=== PATIENT | male | born 1935 | race Hispanic/Latino ===

== ENCOUNTER 2018-10-11 05:33 | Outpatient (CLI) | payer MEDICARE, BC | END 2018-10-11 05:34 | disposition home or self-care (01) | LOC: PET-BROA 05:33 ==

== ENCOUNTER 2019-01-03 07:17 | Inpatient (IN) | payer MEDICARE, BC ==
--- NOTE | 2019-01-03 07:52 | ED PDOC ---
Arrival/HPI - General Chief Complaint: Trauma Time Seen by Provider: 01/03/19 07:32 Historian: Patient - History of Present Illness Narrative History of Present Illness (Text): 01/03/19 07:32 Omkar Kimble is an 83 year old male, with a past medical history of blindness (right eye), seizures, and hallucinations, bib EMS complaining of AMS and falls earlier this morning. Per , patient was given old sleeping pill which causes pt to have hallucinations; she informs patient fell in the bathroom and denies loss of consciousness. Patient also states slipping and falling out of bed but denies head injury or loss of consciousness. Patient states he landed on his right hand but denies any bodily injuries. Per , patients current mental status in ED is normal s/p sleeping pills. Per daughter, patient is currently being evaluated for hallucinations and seizures. Daughter states patient appreciates extremity weakness at home and requests patient admission and rehab. Patient denies headache, dizziness, fevers, chills, nausea, vomiting, diarrhea, visual changes, neck pain, back pain, dysuria, hematuria, frequency changes, bowel/bladder incontinence, or any other complaints. Time/Duration: Prior to Arrival Symptom Onset: Sudden Activities at Onset: Light Context: Home Past Medical History - Provider Review Nursing Documentation Reviewed: Yes - Infectious Disease Hx of Infectious Diseases: None - Neurological Hx Dementia: Yes - Psychiatric Hx Substance Use: No - Anesthesia Hx Anesthesia Reactions: No Family/Social History - Physician Review Nursing Documentation Reviewed: Yes Family/Social History: Unknown Family HX Smoking Status: Former Smoker Hx Alcohol Use: No Hx Substance Use: No Allergies/Home Meds Allergies/Adverse Reactions: Allergies No Known Allergies Allergy (Verified 01/03/19 13:18) Home Medications: Home Meds Medication Instructions Recorded Confirmed Isosorbide Mononitrate ER [Imdur 30 mg PO DAILY 01/03/19 01/03/19 ER] Nortriptyline [Nortriptyline HCl] 10 mg PO DAILY 01/03/19 01/03/19 Tamsulosin [Flomax] 0.4 mg PO DAILY 01/03/19 01/03/19 Triamterene [Dyrenium] 50 mg PO DAILY 01/03/19 01/03/19 lamoTRIgine [Lamictal] 25 mg PO BID 01/03/19 01/03/19 Review of Systems - Review of Systems Constitutional: absent: Fevers, Other (chills) Eyes: absent: Vision Changes Gastrointestinal: absent: Diarrhea, Nausea, Vomiting, Other (bowel incontinence) Genitourinary Male: absent: Dysuria, Frequency, Hematuria, Other (urinary incontinence) Musculoskeletal: absent: Arthralgias, Back Pain, Neck Pain, Other (head injury) Neurological: absent: Headache, Dizziness, Other (loss of consciousness) Physical Exam Vital Signs Reviewed: Yes Vital Signs Temp Pulse Resp BP Pulse Ox 01/03/19 07:27 98.8 F 97 H 18 127/63 94 L Temperature: Afebrile Blood Pressure: Normal Pulse: Regular Respiratory Rate: Normal Appearance: Positive for: Well-Appearing, Non-Toxic, Comfortable Pain Distress: None Mental Status: Positive for: Alert and Oriented X 3 Finger Stick Blood Glucose: 153 - Systems Exam Head: Present: Atraumatic, Normocephalic Pupils: Present: PERRL Extroacular Muscles: Present: EOMI Conjunctiva: Present: Normal Mouth: Present: Moist Mucous Membranes Neck: Present: Normal Range of Motion Respiratory/Chest: Present: Clear to Auscultation, Good Air Exchange. No: Respiratory Distress, Accessory Muscle Use, Wheezes, Rales, Rhonchi Cardiovascular: Present: Regular Rate and Rhythm, Normal S1, S2. No: Murmurs, Rub, Gallop Abdomen: Present: Normal Bowel Sounds. No: Tenderness, Distention, Peritoneal Signs, Rebound, Guarding Back: Present: Normal Inspection Upper Extremity: Present: Normal Inspection, Normal ROM, NORMAL PULSES, Neurovascularly Intact, Other (good strength of upper extremities). No: Cyanosis, Edema Lower Extremity: Present: Normal Inspection, NORMAL PULSES, Normal ROM, Neurovascularly Intact, Other (good strength of lower extremities). No: Edema Neurological: Present: GCS=15, CN II-XII Intact, Speech Normal, Motor Func Grossly Intact Skin: Present: Warm, Dry, Normal Color. No: Rashes Psychiatric: Present: Alert, Oriented x 3, Normal Insight, Normal Concentration Medical Decision Making ED Course and Treatment: 01/03/19 07:32 Impression: Patient is an 83 year old male, with a past medical history of blindness (right eye), seizures, and hallucinations, bib EMS to the emergency department complaining of AMS and falls earlier this morning. Plan: -- CT Head w/o Contrast -- Labs -- Reassess and disposition Prior Visits: Notes and results from previous visits were reviewed. Progress Notes: Labs and imaging done. UTI noted. Rocephin 1g ivpb ordered. Will admit for frequent falls and UTI. Case discussed with Dr. Gutierres, who came to see the patient in the emergency department and accepts him for admission to his service. - RAD Interpretation Narrative RAD Interpretations (Text): 01/03/19 09:12 CT Head w/o Contrast shows: IMPRESSION: No acute findings Dog Or Animal Sitter: Radiologist - EKG Interpretation EKG Interpretation (Text): 01/03/19 07:23 Reviewed EKG, shows: NSR at 100 BPM. Normal Hammond. Normal Intervals. No ST elevations. Interpreted by ED Physician: Yes Type: 12 lead EKG - Scribe Statement The provider has reviewed the documentation as recorded by the Scribe Arnel Wild All medical record entries made by the Scribe were at my direction and personally dictated by me. I have reviewed the chart and agree that the record accurately reflects my personal performance of the history, physical exam, medical decision making, and the department course for this patient. I have also personally directed, reviewed, and agree with the discharge instructions and disposition. Disposition/Present on Arrival - Present on Arrival Any Indicators Present on Arrival: No History of DVT/PE: No History of Uncontrolled Diabetes: No Urinary Catheter: No History of Decub. Ulcer: No History Surgical Site Infection Following: None - Disposition Have Diagnosis and Disposition been Completed?: Yes Diagnosis: UTI (urinary tract infection), Frequent falls Disposition: HOSPITALIZED Disposition Time: 09:50 Condition: STABLE
[2019-01-03 07:55] LABS: BASO # 0.02 K/mm3 (0.0-2.0); BASO % 0.1 % (0.0-3.0); EOS # 0.1 (0.0-0.7); EOS % 0.3 % (1.5-5.0); HEMOGLOBIN 10.8 g/dL (14.0-18.0); LYMPH # 1.2 (1.2-3.4); LYMPH % 6.5 % (22.0-35.0); MEAN CELL VOLUME 92.7 fl (80.0-105.0); MEAN CORPUSCULAR HGB CONC 31.3 g/dl (31.0-37.0); MEAN PLATELET VOLUME 9.4 fl (7.0-11.0); MONO % 5.6 % (1.0-6.0); RBC 3.72 10^6/uL (3.5-6.1); RED CELL DISTRIBUTION WIDTH 13.9 % (11.5-14.5); WHITE BLOOD COUNT 18.5 10^3/uL (4.5-11.0)
[2019-01-03 08:06] LABS: ALB/GLOB RATIO 1.3 (1.1-1.8); ALBUMIN 3.9 g/dL (3.0-4.8); CALCIUM 10.5 mg/dL (8.4-10.5)
--- NOTE | 2019-01-03 09:16 | CT ---
Date of service: 01/03/2019 PROCEDURE: CT HEAD WITHOUT CONTRAST. HISTORY: fall COMPARISON: None available. TECHNIQUE: Axial computed tomography images were obtained through the head/brain without intravenous contrast. Radiation dose: Total exam DLP = 913.86 mGy-cm. This CT exam was performed using one or more of the following dose reduction techniques: Automated exposure control, adjustment of the mA and/or kV according to patient size, and/or use of iterative reconstruction technique. FINDINGS: HEMORRHAGE: No intracranial hemorrhage. BRAIN: No mass effect or edema. Mild age-related atrophy. VENTRICLES: Unremarkable. No hydrocephalus. CALVARIUM: Unremarkable. PARANASAL SINUSES: Unremarkable as visualized. No significant inflammatory changes. MASTOID AIR CELLS: Unremarkable as visualized. No inflammatory changes. OTHER FINDINGS: None. IMPRESSION: No acute findings
[2019-01-03 09:24] LABS: URINE BILIRUBIN NEGATIVE (NEGATIVE); URINE BLOOD TRACE-LYSED (NEGATIVE); URINE GLUCOSE (UA) NEGATIVE (NEGATIVE); URINE LEUKOCYTE ESTERASE SMALL Leu/uL (NEGATIVE); URINE PROTEIN NEGATIVE mg/dL (<30 mg/dL); URINE UROBILINOGEN 0.2 E.U./dL (<1 E.U./dL)
[2019-01-03 09:27] LABS: URINE APPEARANCE SL CLOUDY (CLEAR); URINE COLOR YELLOW (YELLOW)
[2019-01-03 09:34] LABS: URINE BACTERIA FEW /hpf; URINE RBC 0 - 2 /hpf (0-2)
[2019-01-03] MEDS ORDERED: cefTRIAXone 1 gm 1 GM/100 ML BAG IVPB ONE (09:52)
[2019-01-03] MEDS: Dextrose 5%/0.45% NS 1,000 ML IV SCH (13:03)
--- NOTE | 2019-01-03 16:18 | CON ---
DATE: 01/03/2019 HISTORY OF PRESENT ILLNESS: He is an 83-year-old male who is blind from the right eye, complains of seizure and hallucinations. The patient felt altered and confused and fell in the bathroom, did not lose consciousness. Called to evaluate the patient. Denies any headaches. No dizziness. The patient's family is at bedside and eating. REVIEW OF SYSTEMS: Ten-point review of systems is negative except confusion. PHYSICAL EXAMINATION VITAL SIGNS: Blood pressure 127/63. HEENT: Normocephalic and atraumatic. NECK: Supple. NEUROLOGIC: Awake and oriented to self and place. Cranial nerves II through XII were tested. Pupils reactive. EOM intact. Visual crane full. No facial asymmetry. Tongue midline. Motor examination, moves all the extremities spontaneously and equally. Deep tendon reflexes 1+. Both plantars are downgoing. Sensory appears intact. Cerebellar gait was deferred. IMPRESSION: Altered mental status, history of seizure, and generalized weakness. We will follow up. Workup in progress. Jhony Jernigan MD
[2019-01-03 16:20] VITALS: BMI 27.7
[2019-01-03] MEDS ORDERED: Pneumococcal 23-Valent Vaccine IM ONE (16:20)
--- NOTE | 2019-01-03 19:00 | CARD ---
APPROVED REPORT Date of service: 01/03/2019 EKG Measurement Heart [id number] <Conclusion> Normal sinus rhythm Normal ECG
[2019-01-04 09:27] LABS: BASO # 0.03 K/mm3 (0.0-2.0); BASO % 0.3 % (0.0-3.0); EOS # 0.5 (0.0-0.7); EOS % 4.9 % (1.5-5.0); HEMOGLOBIN 11.5 g/dL (14.0-18.0); LYMPH # 0.9 (1.2-3.4); MEAN CELL VOLUME 92.5 fl (80.0-105.0); MEAN CORPUSCULAR HEMOGLOBIN 28.8 pg (25.0-35.0); MEAN CORPUSCULAR HGB CONC 31.1 g/dl (31.0-37.0); MEAN PLATELET VOLUME 9.2 fl (7.0-11.0); MONO # 0.9 (0.1-0.6); MONO % 8.4 % (1.0-6.0); WHITE BLOOD COUNT 10.8 10^3/uL (4.5-11.0)
[2019-01-04 09:38] LABS: CALCIUM 10.8 mg/dL (8.4-10.5)
[2019-01-04] MEDS: cefTRIAXone 1 gm 1 GM/100 ML BAG IV SCH (09:40)
[2019-01-04] MEDS: Tobramycin/Dexamethasone (Tobradex) Opth Sol (2.5 ml) OD SCH ×2 (09:41→17:31)
--- NOTE | 2019-01-04 11:11 | CP.PCM.PCO ---
Additional Comments - Additional Comments Additional Comments: Pt is an 83 y.o. male w/ pmhx of seizures, hallucinations and blind on R eye was brought in to ED for AMS and s/p fall. In ED, his WBC was elevated at 18.5 and his bun/cr were 40/1.9 respectively. Pt's urinalysis was positive. Currently, pt is on Rocephin IV and IVFs. Pt is afebrile and his leukocytosis improved. Pt was seen and examined at bedside. He is in no acute distress, denies chest pain or shortness of breath. Pt is confused and states that he is going to a wedding today and he will be the ring bearer. ITS Impressions Head CT 01/03/19 07:44 IMPRESSION: No acute findings Laboratory Results - last 24 hr 01/04/19 01/04/19 09:00 09:00 WBC 10.8 D RBC 4.00 Hgb 11.5 L Hct 37.0 L MCV 92.5 MCH 28.8 MCHC 31.1 RDW 14.0 Plt Count 210 MPV 9.2 Neut % (Auto) 78.4 H Lymph % (Auto) 8.0 L Bracken % (Auto) 8.4 H Eos % (Auto) 4.9 Baso % (Auto) 0.3 Lymph # (Auto) 0.9 L Bracken # (Auto) 0.9 H Eos # (Auto) 0.5 Baso # (Auto) 0.03 Absolute Neuts (auto) 8.47 H Sodium 142 Potassium 4.0 Chloride 106 Carbon Dioxide 27 Anion Gap 13 BUN 28 H Creatinine 1.6 H Est GFR ( Amer) 50 Est GFR (Non-Af Amer) 41 Random Glucose 150 H Calcium 10.8 H A/P: UTI - on Rocephin IV, pending urine cx S/P fall - CT head negative, Neuro on consult, pending physical therapy eval JOHN - on IVFs. Bun/Cr improving, continue to monitor Will continue to follow.
--- NOTE | 2019-01-04 11:37 | CP.PCM.PCO ---
Physician Communication Note - Physician Communication Note Physician Communication Note: PT eval. avoid sedative meds. c./w with home sz meds. thx
--- NOTE | 2019-01-04 12:18 | RAD ---
Date of service: 01/04/2019 HISTORY: hi wbc, ams COMPARISON: No prior. TECHNIQUE: Chest PA and lateral views FINDINGS: LUNGS: No active pulmonary disease. PLEURA: No significant pleural effusion identified. No pneumothorax apparent. CARDIOVASCULAR: Aortic calcification and mild tortuosity Normal cardiac size. No pulmonary vascular congestion. OSSEOUS STRUCTURES: No significant abnormalities. VISUALIZED UPPER ABDOMEN: Normal. OTHER FINDINGS: None. IMPRESSION: No active disease.
--- NOTE | 2019-01-05 02:26 | PN ---
DATE: 01/04/2019 SUBJECTIVE: The patient was seen this Monday morning in room 567, bed 2 as he is being washed. He is lying in bed comfortable but very much confused. He is talk is constant, and he is laughing and joking during the entire process. He recognizes me and carries on conversation but in a very lighthearted and impertinent manner. Earlier today, he pulled out his IV and was trying to climb out of bed. PHYSICAL EXAMINATION: LUNGS: Good aeration right and left. HEART: Regular, nontachycardic. EXTREMITIES: Show no edema. REVIEW OF LABS: Review of labs shows white count to come down to normal. Chemistries are otherwise acceptable. His BUN has come down a bit. He does, however, remain clinically dry. IMPRESSION: 1. Urinary tract infection. 2. Dehydration. 3. Acute altered mental status related to urinary traction infection and dehydration. 4. Several months of worsening delusions and visual hallucinations with outpatient neurology workup, suspect Lewy body dementia. PLAN: We will continue antibiotics for urinary tract infection. Extend aggressive IV hydration. Neurology input appreciated. We will continue and await results of workup as outlined above. I spoke to the patient's yesterday in the ER and again this evening by telephone to update her on his condition. Jeramie Gutierres MD [email or web address]
[2019-01-05 07:33] LABS: BASO # 0.03 K/mm3 (0.0-2.0); BASO % 0.4 % (0.0-3.0); EOS # 0.8 (0.0-0.7); EOS % 9.9 % (1.5-5.0); HEMOGLOBIN 12.2 g/dL (14.0-18.0); LYMPH # 1.1 (1.2-3.4); LYMPH % 14.5 % (22.0-35.0); MEAN CELL VOLUME 94.3 fl (80.0-105.0); MEAN CORPUSCULAR HGB CONC 30.8 g/dl (31.0-37.0); MEAN PLATELET VOLUME 9.2 fl (7.0-11.0); MONO % 13.1 % (1.0-6.0); RBC 4.2 10^6/uL (3.5-6.1); WHITE BLOOD COUNT 7.6 10^3/uL (4.5-11.0)
[2019-01-05 07:50] LABS: CALCIUM 11.1 mg/dL (8.4-10.5)
[2019-01-05] MEDS: Dextrose 5%/0.45% NS 1,000 ML IV SCH ×2 (08:14→10:21)
[2019-01-05] MEDS: cefTRIAXone 1 gm 1 GM/100 ML BAG IV SCH (09:51)
[2019-01-05] MEDS: Tobramycin/Dexamethasone (Tobradex) Opth Sol (2.5 ml) OD SCH ×3 (11:48→18:54)
--- NOTE | 2019-01-05 23:43 | PN ---
DATE: 01/05/2019 SUBJECTIVE: The patient was seen this Monday morning in room 567 bed 1 with his at the bedside. The patient sound sleep after having been up and in a high energy state most of yesterday and through the night. He received some sedation in premium representative hours and is now quite sleepy. I have the feeling he will sleep most of today after such an active day yesterday. His white count is coming down nicely. His blood pressure is stable. BUN is coming down as well. Creatinine has finally entered the normal range. Prior records and Neurology consultation was reviewed in his office note. There is a suspicion of Lewy bodies, dementia with visual hallucinations, as well as concern of Parkinson's disease especially as his today reports a decreased movement, shuffling gait and some times frozen inability to move his legs. Therefore, we will avoid neuroleptics, discontinue the Risperdal, add levodopa/carbidopa and try to minimize benzodiazepines as much as possible. We will continue antibiotics and reevaluate in the morning. Urine cultures have shown Gram-negative rods, but we will await isolation and sensitivity. Jeramie Gutierres MD DELANEY
[2019-01-06] MEDS: Dextrose 5%/0.45% NS 1,000 ML IV SCH ×2 (03:34→23:19)
[2019-01-06] MEDS ORDERED: DiphenhydrAMINE 50 mg/ml Inj IVP STA (03:42)
[2019-01-06 07:47] LABS: BASO # 0.03 K/mm3 (0.0-2.0); BASO % 0.4 % (0.0-3.0); EOS # 0.6 (0.0-0.7); EOS % 8.8 % (1.5-5.0); HEMOGLOBIN 11.2 g/dL (14.0-18.0); LYMPH # 0.6 (1.2-3.4); LYMPH % 9.2 % (22.0-35.0); MEAN CELL VOLUME 92.9 fl (80.0-105.0); MEAN CORPUSCULAR HEMOGLOBIN 29.4 pg (25.0-35.0); MEAN CORPUSCULAR HGB CONC 31.6 g/dl (31.0-37.0); MEAN PLATELET VOLUME 9.6 fl (7.0-11.0); MONO % 14.2 % (1.0-6.0); RBC 3.81 10^6/uL (3.5-6.1); RED CELL DISTRIBUTION WIDTH 13.8 % (11.5-14.5)
[2019-01-06 08:34] LABS: ALB/GLOB RATIO 1.2 (1.1-1.8); ALBUMIN 3.7 g/dL (3.0-4.8); CALCIUM 10.8 mg/dL (8.4-10.5)
[2019-01-06] MEDS: cefTRIAXone 1 gm 1 GM/100 ML BAG IV SCH (10:47)
[2019-01-06] MEDS: Tobramycin/Dexamethasone (Tobradex) Opth Sol (2.5 ml) OD SCH ×2 (10:47→18:24)
--- NOTE | 2019-01-06 21:57 | PN ---
DATE: 01/06/2019 SUBJECTIVE: The patient was seen this Monday morning in room 567, bed 1 with no visitors present at this time. Electronic monitor is present in the room as the patient was tending to get up and out of bed. He slept a good part of yesterday, but then was up for a bit of the night and rather restless. PHYSICAL EXAMINATION: NEUROLOGY: He is a bit confused. Notes from outpatient Neurology workup were reviewed and some of his medicines were adjusted regarding the concern about seizure. He is on Lamictal as well as quetiapine for the hallucinations at bedtime and again in the morning, so I will resume those. I also added some levodopa and carbidopa as the reports stiffness and rigidity. We will try to get physical therapy evaluation and perhaps TCU evaluation in the morning and we will discuss further with Neurology. Jeramie Gutierres MD
--- NOTE | 2019-01-07 02:28 | HP ---
DATE OF EXAM: 01/03/2019 CHIEF COMPLAINT: Altered mental status. HISTORY OF PRESENT ILLNESS: This is an 83-year-old man in recent workup for visual hallucinations, who lives at home independently with his and children close nearby who was brought to the emergency room by his family on the morning of admission with reported bizarre behavior, altered mental status, conversation that is not making sense. In the emergency room, patient was found to have urinary tract infection, be acutely confused and arrangements were made for him to be admitted. I saw him in the emergency room, IV fluids and antibiotics were started. PAST MEDICAL HISTORY: Significant for hypertension since 04/2015. Negative for diabetes, cholesterol, tuberculosis, asthma, seizure, gout, emphysema, TIA, CVA, IA, coronary artery disease, or cancers of any type. Problem list in the office includes hypertension, peripheral artery disease, psoriasis, elevated PSA with BPH, blind in the right eye, primary hypoparathyroidism diagnosed in 2017. PAST SURGICAL HISTORY: Significant for a table saw accident in 2004 with a slight amputation of tip of the right index finger, cataract surgery on the right eye in 2010 resulting in blindness postop complications, a retinal bleed in the right eye at age 34, vocal cord polyps removed in the , right eye blindness, he can see light, but not movement since 09/2013, and kidney stones in 1983. He never had a colonoscopy because his [id number] had complications and a perforation at the time of the colonoscopy. He had a stress test in 2001. He gets the flu shot yearly. His last Pneumovax vaccine was in 2000. ALLERGIES: LISINOPRIL CAUSED HIVES, POTASSIUM AND ATENOLOL CAUSED PROFOUND BRADYCARDIA IN THE PAST. SOCIAL HISTORY: Tobacco; he quit smoking in 1997 after many years of a pack per day or more. Up until recently he would drink an occasional alcoholic beverage, a beer and 3 or 4 cups of coffee per day. FAMILY HISTORY: His mother at age 48. Father at age 72. He is the oldest of five. The patient, his brother, and two sisters survive. He is with eight children, five sons, and three daughters, 12 grand and one great grand. 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 His manufacturing mechanic was Dr. Savage until he had recently retired and Dr. Salomon. MEDICATIONS: Most recent medications in the office included quetiapine 25 mg b.i.d., atorvastatin 20 mg once a day, isosorbide 30 mg once a day, triamterene and hydrochlorothiazide 37.5/25 mg once a day, vitamin D3, MiraLax, tamsulosin 0.4 mg daily, aspirin 81 mg daily, vitamins, and arthritis supplementals. He was recently been seen by Dr. Zuluaga, neurologist, and worked up for visual hallucinations. He was concern or question about a possible seizure disorder on recent EEGs that were done. REVIEW OF SYSTEMS: Difficult to obtain because of patient's obtunded and confused state. PHYSICAL EXAMINATION GENERAL: Patient was seen this morning in the emergency room with his and daughter at the bedside. He was in bed, awake, but confused, not making sense, a bit lethargic and groggy. HEENT: Conjunctivae are pink. Mucous membranes are moist. NECK: Supple with no masses. LUNGS: Show good aeration right and left. HEART: Regular and not tachycardic. ABDOMEN: Overweight, nontender. EXTREMITIES: Show no edema. IMPRESSION: 1. Acute altered mental status most likely due to urinary traction infection. 2. Urinary traction infection. 3. Recent history of visual hallucinations with possibility of seizure disorder and/or Lewy body dementia. 4. Hypertension. 5. Peripheral artery disease. 6. Psoriasis. 7. Benign prostatic hypertrophy with elevated prostate specific antigen. 8. Blind in right eye. 9. Primary hyperparathyroidism. PLAN: Patient will be admitted, given IV fluids and antibiotics. Neurology consultation requested and then after speaking with the patient's family, we will look for physical therapy and perhaps Transitional Care Unit for therapy and conditioning prior to returning home. Jeramie Gutierres MD
[2019-01-07] MEDS: Cefpodoxime (Vantin) 200 mg Tab PO SCH ×2 (10:57→21:05)
[2019-01-07] MEDS: Tobramycin/Dexamethasone (Tobradex) Opth Sol (2.5 ml) OD SCH ×2 (10:58→17:44)
[2019-01-07 12:32] LABS: CALCIUM 10.4 mg/dL (8.4-10.5)
--- NOTE | 2019-01-07 13:14 | PN ---
DATE: 01/07/2019 SUBJECTIVE: The patient is an 83-year-old male, who was admitted to the [facility] on 01/03/2019 after falling at home showing mental status changes including bizarre behavior, hallucinations, on nonsensical conversation. The patient was evaluated in the emergency room and admitted. He was found to have urinary tract infection. This morning, the cultures were identified as Enterobacter cloacae, which is sensitive to Rocephin, which the patient had been receiving. He also was evaluated by Physical Therapy, was able to ambulate with a rolling walker 20 feet x2 and subacute care was recommended. When seen today, the patient was resting comfortably. His and daughter were at bedside. Case was discussed at length with them. They will be meeting with social workers and mental health case manager later on today for further plan of care. The patient is known to have a past medical history for hypertension, peripheral artery disease, psoriasis, benign prostatic hypertrophy, blindness in the right eye, hypoparathyroidism. ASSESSMENT AND PLAN: We will continue to follow the patient closely. Antoni Gutierres MD
--- NOTE | 2019-01-08 02:15 | CP.PCM.PN ---
Subjective - Date & Time of Evaluation Date of Evaluation: 01/08/19 Time of Evaluation: 02:15 - Subjective Subjective: See my note elsewhere. Objective - Vital Signs/Intake and Output Vital Signs (last 24 hours): Temp Pulse Resp BP Pulse Ox 98.2 F 87 18 188/70 H 95 01/07/19 23:08 01/08/19 01:40 01/07/19 23:08 01/08/19 01:40 01/07/19 23:08 Intake and Output: 01/07/19 01/08/19 18:59 06:59 Intake Total 540 Balance 540 - Medications Medications: Current Medications Carbidopa/Levodopa (Sinemet 10/100) 1 tab PO TID [facility] Last Admin: 01/07/19 17:44 Dose: 1 tab Cefpodoxime Proxetil (Vantin) 200 mg PO Q12 [facility] Last Admin: 01/07/19 21:05 Dose: 200 mg Dextrose/Sodium Chloride (Dextrose 5%/0.45% Ns 1000 Ml) 1,000 mls @ 60 mls/hr IV .[id number] [facility] Last Admin: 01/06/19 23:19 Dose: 60 mls/hr Isosorbide Mononitrate (Imdur Er) 30 mg PO DAILY [facility] Last Admin: 01/07/19 10:57 Dose: 30 mg Lamotrigine (Lamictal) 25 mg PO BID [facility]; Protocol Last Admin: 01/07/19 17:44 Dose: 25 mg Lorazepam (Ativan) 0.5 mg PO Q6H PRN; Protocol PRN Reason: Restlessness Last Admin: 01/07/19 23:32 Dose: 0.5 mg Nortriptyline HCl (Pamelor) 10 mg PO HS [facility] Last Admin: 01/07/19 21:05 Dose: 10 mg Quetiapine Fumarate (Seroquel) 25 mg PO HS [facility]; Protocol Last Admin: 01/07/19 21:05 Dose: 25 mg Tamsulosin HCl (Flomax) 0.4 mg PO DAILY [facility] Last Admin: 01/07/19 10:57 Dose: 0.4 mg Tobramycin/Dexamethasone (Tobradex Opht Susp) 0 ml OD BID [facility] Last Admin: 01/07/19 17:44 Dose: 1 drop - Labs Labs: 01/06/19 06:30 01/07/19 12:15
[2019-01-08 06:45] LABS: HEMOGLOBIN 11.3 g/dL (14.0-18.0); MEAN CELL VOLUME 91.6 fl (80.0-105.0); MEAN CORPUSCULAR HEMOGLOBIN 28.9 pg (25.0-35.0); MEAN CORPUSCULAR HGB CONC 31.6 g/dl (31.0-37.0); MEAN PLATELET VOLUME 8.9 fl (7.0-11.0); RBC 3.91 10^6/uL (3.5-6.1); RED CELL DISTRIBUTION WIDTH 13.8 % (11.5-14.5); WHITE BLOOD COUNT 6.8 10^3/uL (4.5-11.0)
[2019-01-08 07:09] LABS: CALCIUM 10.9 mg/dL (8.4-10.5)
[2019-01-08] MEDS: Cefpodoxime (Vantin) 200 mg Tab PO SCH ×2 (11:13→22:07)
[2019-01-08] MEDS: Tobramycin/Dexamethasone (Tobradex) Opth Sol (2.5 ml) OD SCH ×2 (11:14→17:09)
--- NOTE | 2019-01-08 13:01 | CP.PCM.PCO ---
Additional Comments - Additional Comments Additional Comments: Pt seen and examined at bedside. He is calm, in no acute distress. Per RN, pt was having hallucinations last night. D/W PMD, pending psych consult. Physical therapy recommends [facility]. Will continue to follow
--- NOTE | 2019-01-08 20:41 | CP.PCM.PN ---
Subjective - Date & Time of Evaluation Date of Evaluation: 01/08/19 Time of Evaluation: 20:38 - Subjective Subjective: It was requested to co-sign order for seroquel. patient was agitated and blood pressure was BP 190/80, pulse 83. Later on Hydralazine 10 mg IV was ordered. Patient had no headache, dizziness, chest pain, sob. Medical record was reviewed. This 83 year old male was admitted with bizzare behaviour, altered mental status and conversation that does not make any sense. Has PMH of HTN, DM, HLD , TB , asthma, seizure , gout, CAD, AK, COPD ,TIA,elevated PSA, psoriasis,PAD,BPH, right eye blindness. Objective - Vital Signs/Intake and Output Vital Signs (last 24 hours): Temp Pulse Resp BP Pulse Ox 97.7 F 72 18 100/63 97 01/08/19 14:00 01/08/19 14:00 01/08/19 14:00 01/08/19 14:00 01/08/19 14:00 - Medications Medications: Current Medications Carbidopa/Levodopa (Sinemet 10/100) 1 tab PO TID [facility] Last Admin: 01/08/19 17:09 Dose: 1 tab Cefpodoxime Proxetil (Vantin) 200 mg PO Q12 [facility] Last Admin: 01/08/19 11:13 Dose: 200 mg Dextrose/Sodium Chloride (Dextrose 5%/0.45% Ns 1000 Ml) 1,000 mls @ 60 mls/hr IV .[id number] [facility] Last Admin: 01/06/19 23:19 Dose: 60 mls/hr Isosorbide Mononitrate (Imdur Er) 30 mg PO DAILY [facility] Last Admin: 01/08/19 11:11 Dose: 30 mg Lamotrigine (Lamictal) 25 mg PO BID [facility]; Protocol Last Admin: 01/08/19 17:09 Dose: 25 mg Lorazepam (Ativan) 0.5 mg PO Q6H PRN; Protocol PRN Reason: Restlessness Last Admin: 01/07/19 23:32 Dose: 0.5 mg Nortriptyline HCl (Pamelor) 10 mg PO HS [facility] Last Admin: 01/07/19 21:05 Dose: 10 mg Quetiapine Fumarate (Seroquel) 25 mg PO HS [facility]; Protocol Last Admin: 01/07/19 21:05 Dose: 25 mg Tamsulosin HCl (Flomax) 0.4 mg PO DAILY [facility] Last Admin: 01/08/19 11:12 Dose: 0.4 mg Tobramycin/Dexamethasone (Tobradex Opht Susp) 0 ml OD BID [facility] Last Admin: 01/08/19 17:09 Dose: 1 drop - Labs Labs: 01/08/19 06:30 01/08/19 06:30 Assessment and Plan - Assessment and Plan (Free Text) Assessment: Agitation. Elevated blood pressure reading. HTN DM HLD History TB. Asthma. Seizure. Gout. CAD COPD BPH PAD Right eye blindness. Plan: Seroquel as ordered. Hydralazine 10 mg as ordered. Continue present management.
[2019-01-09] MEDS: Cefpodoxime (Vantin) 200 mg Tab PO SCH ×2 (09:56→21:42)
[2019-01-09] MEDS: Tobramycin/Dexamethasone (Tobradex) Opth Sol (2.5 ml) OD SCH ×2 (09:59→17:57)
--- NOTE | 2019-01-09 13:02 | PN ---
DATE: 01/08/2019 SUBJECTIVE: The patient was seen this Monday in room 576, bed 1 with his family at the bedside; and daughter were present. The patient was more awake and alert, but still very much confused. Continuing to have visual hallucinations. He has had been worked up on the outpatient basis with Dr. Zuluaga, who came to presumptive diagnosis of a possible seizure disorder as well as Lewy body dementia. The patient's also recently reported muscle stiffness and rigidity and some cogwheel rigidity is noted in the biceps tendon on extension, so the possibility of Parkinson's disease is raised. The patient seems to be doing better on current medication regimen, so we will ask Dr. Bety Mccoy to consult from Psychiatry and perhaps better adjustments can be made to help reduce the frequency of hallucinations and to help with confusion. Family met with Case Management and social workers to talk about long-term planning and discharge planning which was extremely helpful. My thanks to director of social media marketing for her help. Jeramie Gutierres MD [facility]
--- NOTE | 2019-01-09 22:52 | CON ---
DATE OF CONSULTATION: 01/09/2019 HISTORY OF PRESENT ILLNESS: In short, the patient is an 83-year-old male. The patient has multiple medical issues including blindness of the right eye, seizure, and hallucinations. The patient also has history of Parkinson's. The patient was admitted on the medical side for evaluation of altered mental status, which is mostly related to delirium due to urinary tract infection and possible medication-induced psychosis. The patient was seen and examined today. The patient has power of real estate attorney. The patient's was Adriana Kimble, as well as the patient's daughter, Paris, are next to the patient, and as per the family, they are power of real estate attorney for the patient. As per family, the patient became psychotic about for past 2 years. The patient started to see people, giant people, small people, also different animals. The patient also was seeing people V-shaped. Most recently, the patient was acting on his hallucinations, convinced that the patient's family is hiding something from him. The patient has Dr. Zuluaga as a neurologist. The patient was started on Seroquel as well as parkinsonian medications, but Parkinson's medications the patient did not tolerate well, and he had history of falls. At the present moment, the patient's family is looking for medication management in order to manage the patient at home as long as possible, or if it is not possible, half-way placement. This database report writer had prolonged conversation with Dr. Gutierres about this patient. Treatment options were discussed with the patient's family as well as nurses and primary care physician. As per nursing report, the patient had sundowning and on benzodiazepines. The patient was on inhibitors, so at this point, this database report writer would choose Seroquel as a new medications. This database report writer educated family, power of real estate attorney, about risks, benefits and alternatives of the medication, and family agreed with the Seroquel to be increased to twice a day. This database report writer attempted to speak to the patient, but the patient presented to be sleepy, was not able to recognize his family, but as per family, this is because the patient just woke up and appears to be confused. PHYSICAL EXAMINATION: VITAL SIGNS: Reviewed. Temperature is 98.4, pulse is 44, blood pressure 93/53, respirations 18, oxygen saturation is 97. MEDICATIONS: Reviewed. The patient is on Xanax, atenolol, Sinemet, Vantin, dextrose, Imdur, Lamictal, Ativan 0.5 mg every 6 hours as needed, but the patient was disinhibited on that medication. Seroquel will be given at the nighttime at 04:00 p.m. for . The patient is on Flomax and nortriptyline at the nighttime. We will consider to discontinue it. The patient will be not able to tolerate that medication. Labs reviewed. Hematology reviewed. Urinalysis, positive for leukocyte esterase. Microbiology was positive for Enterobacter in the urine. MENTAL STATUS EXAMINATION: As this database report writer described above, the patient is confused, was not able to recognize his family, and no meaningful conversation possible, but the patient presented to be psychotic, had visual hallucinations and restless behavior. IMPRESSION: Most likely, the patient is in delirium stage plus dementia, delirium due to urinary tract infection and possible medication. PLAN: Treatment options were discussed with the patient's family. Seroquel will be increased to twice a day, also Ativan was discontinued because the patient was disinhibited on that medication. Xanax was started, discussed with the power of real estate attorney, was advised to bring official documents and the chart. We will follow up and advise accordingly. Discussed with Dr. Gutierres. Care for this patient took more than 45 minutes of this database report writer's time. Should you have any questions give me a call back. Bety Mccoy MD
[2019-01-10 09:30] LABS: HEMOGLOBIN 11.3 g/dL (14.0-18.0); MEAN CELL VOLUME 91.8 fl (80.0-105.0); MEAN CORPUSCULAR HEMOGLOBIN 28.9 pg (25.0-35.0); MEAN CORPUSCULAR HGB CONC 31.5 g/dl (31.0-37.0); MEAN PLATELET VOLUME 9.8 fl (7.0-11.0); RBC 3.91 10^6/uL (3.5-6.1); RED CELL DISTRIBUTION WIDTH 13.8 % (11.5-14.5); WHITE BLOOD COUNT 7.2 10^3/uL (4.5-11.0)
[2019-01-10 10:02] LABS: CALCIUM 10.7 mg/dL (8.4-10.5)
--- NOTE | 2019-01-10 11:41 | CP.PCM.PCO ---
Additional Comments - Additional Comments Additional Comments: Pt seen and examined. He is sitting down in a chair, calm and cooperative. D/W Dr. Albert, Serojonol dose adjusted and will monitor pt's behavior overnight. Will continue to follow.
[2019-01-10] MEDS: Cefpodoxime (Vantin) 200 mg Tab PO SCH ×2 (12:30→21:32)
[2019-01-10] MEDS: Tobramycin/Dexamethasone (Tobradex) Opth Sol (2.5 ml) OD SCH ×2 (12:41→18:49)
--- NOTE | 2019-01-10 16:28 | PN ---
DATE: 01/10/2019 SUBJECTIVE: The patient is an 83-year-old male with reported history of Parkinson's disease. The patient also has history of hallucinations and dementia. The patient was admitted on the medical side for evaluation of altered mental status. The patient was diagnosed with urinary tract infection and delirium. This fiction writer got involved into the patient's care because of psychosis and the patient has history of seeing things. The patient also has dementia as well as change in mental status, please see initial note for more detailed information. This fiction writer had prolonged conversation with the patient power of small appliance assembly supervisor ,which is his , as well as the patient's daughter, POA allowed this fiction writer to disclosed all info to the daughter. Treatment plan was discussed in detail yesterday. This fiction writer is following up today. The patient presented in good mood today. The patient was making jokes and was able to recognize his family. The patient was restless over nighttime and the patient was seeing dogs and was upset about that. This fiction writer suggested to increase the dose of Seroquel. Xanax will be given as scheduled at the nighttime and we will follow up and see if the patient will be improving or if not this fiction writer would suggest possible psychiatric admission for further evaluation and stabilization and medication management. We will see if the patient's family agreed with that plan. Vital signs reviewed. Labs reviewed. Medication haro 50 mg of Seroquel will be given at 4 pm and at the nighttime Xanax 0.5 mg will be given at the nighttime. The patient also is on Xanax as needed. Family involved. Treatment plan was discussed in details with the family. MENTAL STATUS: The patient presented to be alert, eating, seems to be in good appetite. Mood described as okay. Thought process seems to be circumstantial and sometimes confabulating thought content. The patient reported to see black dogs overnight. The patient denied thoughts of harming himself or others. Denied intent or plan. DIAGNOSES: Rule out Lewy body disease. The patient is currently in delirium stage plus dementia. The patient also has history of Parkinson's disease, rule out medication-induced psychosis. PLAN: Medications adjusted, Seroquel increased the dose, Xanax is back. Discussed with the patient's family possible transfer to the psychiatric inpatient unit for further stabilization, but if the patient would meet the criteria. Thank you very much for letting me participate in care of your patient. Should you have any questions., give me a call back. Bety Mccoy MD [facility]
[2019-01-11] MEDS: Cefpodoxime (Vantin) 200 mg Tab PO SCH ×2 (11:28→21:53)
[2019-01-11] MEDS: Tobramycin/Dexamethasone (Tobradex) Opth Sol (2.5 ml) OD SCH ×2 (11:30→17:22)
--- NOTE | 2019-01-11 16:37 | PN ---
DATE: 01/11/2019 SUBJECTIVE: The patient is an 83-year-old male with reported history of Parkinson's disease. The patient also has a history of visual hallucinations, rule out Lewy body disease. The patient was admitted on the medical side for urinary tract infection, altered mental status, delirium stage. This typewriter repairer is seeing the patient for hallucinations and agitated, restless behavior and medication management. Please see previous note for more detailed information. So far, this typewriter repairer had meeting with the patient's power of banking attorney, , as well as his daughter. The patient's treatment plan was discussed in detail. This typewriter repairer is adjusting medications such as Seroquel, Xanax, as well as this typewriter repairer will implement Depakote because the patient had restless and agitated behavior over nighttime in response to hallucinations. Family is aware of risk of stroke and black box warning for Seroquel. Also, the patient was on Seroquel prior to coming to the hospital, which was prescribed by Dr. Zuluaga, local neurologist. The patient was seen today. Discussed with the patient's power of banking attorney. The patient's family goal is to take the patient back home if it is possible, and of course, if the patient will be able to sleep through the night and will be more manageable because the patient lives independently with his , who is old and also has a lot of medical issues. This typewriter repairer attempted to speak to the patient, but the patient was about to wake up in confused stage. The patient had restless night, but as per nursing report, the patient was doing slightly better to compare with the previous night. PHYSICAL EXAMINATION VITAL SIGNS: Reviewed. Temperature 98.3, pulse is 68, blood pressure 178/73, respirations 18, and oxygen saturation is 96%. MEDICATIONS: Reviewed. Xanax 0.25 mg three times a day as needed. The patient got only one dose of Xanax 0.5 mg at 4 o'clock as needed. The patient got only one dose. The patient is on Sinemet, Vantin, dextrose, Depakote 250 mg at the nighttime will be added, Imdur. Lamictal will be discontinued. Seroquel 100 mg at the nighttime and Seroquel 100 mg at 4 o'clock was increased today, 01/11/2019. The patient is on Flomax. The patient is on tobramycin. LABORATORY DATA: Labs reviewed. Chemistry reviewed. Urinalysis reviewed. This typewriter repairer also reviewed power of banking attorney documents, and this documented confirming that the patient's is power of banking attorney for medical decisions as well. MENTAL STATUS EXAMINATION: The patient presented to be confused, just waking up. During the nighttime, the patient had hallucinations. The patient was feeling that he is drowning. Also, the patient was hallucinating that he is at home's laundry. Insight and judgment seemed to be impaired. Impulses are unpredictable. IMPRESSION: The patient is still in delirium stage, which seems to be slowly clearing up. Delirium due to urinary tract infection and possible medications. The patient also has Parkinson's/Lewy body disease. PLAN: Continue current management. Continue current medication. Discussed with the patient's power of banking attorney. Documents reviewed. Also medications were discussed with the patient's family. Risks, benefits, and alternatives discussed. Physical therapy recommended subacute rehab. We will follow up and advise accordingly, out of bed if it is safe, physical therapy followup. Should you have any questions, give me a call back. Care for this patient took more than 45 minutes of this typewriter repairer time. Bety Mccoy MD [facility]
[2019-01-11] MEDS: Dextrose 5%/0.45% NS 1,000 ML IV SCH (17:15)
[2019-01-11] MEDS: Divalproex 250 mg DR (BID formulation) PO SCH (21:54)
[2019-01-12] MEDS: Tobramycin/Dexamethasone (Tobradex) Opth Sol (2.5 ml) OD SCH ×2 (10:04→17:51)
[2019-01-12] MEDS: Cefpodoxime (Vantin) 200 mg Tab PO SCH (10:05)
[2019-01-12] MEDS: Dextrose 5%/0.45% NS 1,000 ML IV SCH (10:06)
--- NOTE | 2019-01-12 12:38 | PN ---
DATE: 01/09/2019 DAILY PROGRESS NOTE SUBJECTIVE: The patient is an 83-year-old male, who was admitted to the [facility] on 01/03/2019 after falling at home and showing mental status changes including bizarre behavior, hallucinations, and nonsensical conversations. He was found to have a urinary tract infection in the emergency room. This we later identified as Enterobacter cloacae which was sensitive to Rocephin which the patient had been receiving. During his hospital stay, he was evaluated by Physical Therapy and found to be able to ambulate with a rolling walker 20 feet x2. Therefore, subacute care rehab was recommended. The patient is still having problems with hallucinations and acting out during the hospital stay. Psychiatric consultation is requested to Dr. Bety Mccoy. We are hoping his medications can be adjusted. At this point, the patient's and daughter are at bedtime, and they are concerned that they will not be able to manage the patient at home with these outbreaks that he is having. The patient will be reevaluated in the morning. Antoni Gutierres MD
--- NOTE | 2019-01-12 13:13 | PN ---
DATE: 01/10/2019 DAILY PROGRESS NOTE SUBJECTIVE: The patient is an 83-year-old male who was admitted to [facility] on 01/03/2019 after falling at home and showing her mental status changes including bizarre behavior, hallucinations, has a nonsensical conversation. During the hospital stay. He was evaluated by Dr. Bety Mccoy the psychiatrist, as well as Dr. Jernigan the psychiatrist and adjustment were made to his medications to normalize his mental status. When seen today, the patient is confused. He is talking about going to a tavern and being surprised they were actually robbing the place. His atenolol has been decreased to 25 mg twice a day because of mild hypotension. Dr. Mccoy's consultations is very appreciated. We have discontinued the Ativan switch to Xanax 0.25 mg three times a day as needed. We will also start him on Seroquel 50 mg at 4:00 p.m. and at hour of sleep. We will be continue to observe the patient to see how he responds to this regimen. We will continue to follow the patient closely. Antoni Gutierres MD MTDD
--- NOTE | 2019-01-12 14:17 | PN ---
DATE: 01/11/2019 DAILY PROGRESS NOTE SUBJECTIVE: The patient is an 84-year-old male who was brought to the emergency room with mental status changes and having fallen at home. He suffered no apparent injuries in the fall; however, adjustments are being made to his psychotropic medicines because of his mental status changes. The patient is slowly improving somewhat; however, he still remains quite confused. When seen today, his is at bedside. PHYSICAL EXAMINATION: VITAL SIGNS: Stable. LUNGS: Clear. HEART: Regular. ABDOMEN: Soft and nontender. The possibility of having the patient transferred to [facility]B psychiatric segundo for medication adjustment is being entertained. Once again, the patient's stated that with the patient in his current condition, it would be too difficult for her to manage at home. Speaking to the director of casework department and nursing home social worker, possibility [facility] is being worked on. The patient is known to have a past medical history positive for hypertension, peripheral vascular disease, psoriasis, benign prostatic hypertrophy and blindness in the right eye and hypothyroidism. These conditions are stable at present. The patient is to be re-evaluated in the morning. Antoni Gutierres MD
[2019-01-12] MEDS: Divalproex 250 mg DR (BID formulation) PO SCH (21:21)
--- NOTE | 2019-01-12 21:27 | CON ---
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 I reviewed Dr. Mccoy's notes regarding the patient's history of hallucinations, agitation, and restless behavior. I have also reviewed the recent staff notes, which indicate that patient has been poorly oriented and still has been restless, but was not as agitated overnight last night. I attempted to speak with the patient this morning; however, he is sedated and can only maintain focus and concentration for short periods of time in the questioning. He does not appear to be in any pain. He appears well groomed as well and in general has been becoming slowly more manageable on the medical floor. He still continues to be confused. His insight and judgment still continue to be impaired. Labs and vitals were reviewed. RELEVANT PSYCHIATRIC MEDICATIONS: Include Xanax 0.25 mg t.i.d., 0.5 mg p.o. 4 p.m., Depakote 250 mg at bedtime, Seroquel 100 mg 4 p.m. and 100 mg at bedtime. IMPRESSION: Delirium, improving a little bit, Parkinson's and Lewy body disease. PLAN: We will continue current management. There is no acute indication to change medications at this time. Psychiatry will continue to follow up peripherally. Followup will be on 01/14/[address] Mccoy. Cheri Vargas MD
[2019-01-13] MEDS: Dextrose 5%/0.45% NS 1,000 ML IV SCH (01:38)
[2019-01-13] MEDS: Tobramycin/Dexamethasone (Tobradex) Opth Sol (2.5 ml) OD SCH ×2 (12:22→17:37)
[2019-01-13] MEDS: Divalproex 250 mg DR (BID formulation) PO SCH (22:30)
[2019-01-14] MEDS: Dextrose 5%/0.45% NS 1,000 ML IV SCH ×2 (04:40→17:49)
[2019-01-14] MEDS: Tobramycin/Dexamethasone (Tobradex) Opth Sol (2.5 ml) OD SCH ×2 (13:47→17:51)
[2019-01-14] MEDS ORDERED: Divalproex 250 mg DR (BID formulation) PO SCH (16:00)
[2019-01-14 16:55] LABS: HEMOGLOBIN 11.8 g/dL (14.0-18.0); MEAN CORPUSCULAR HEMOGLOBIN 29.3 pg (25.0-35.0); MEAN CORPUSCULAR HGB CONC 31.1 g/dl (31.0-37.0); MEAN PLATELET VOLUME 9.6 fl (7.0-11.0); RBC 4.03 10^6/uL (3.5-6.1); RED CELL DISTRIBUTION WIDTH 13.9 % (11.5-14.5); WHITE BLOOD COUNT 5.5 10^3/uL (4.5-11.0)
--- NOTE | 2019-01-14 23:35 | PN ---
DATE: 01/14/2019 SUBJECTIVE: The patient was seen today. The patient presented to be sleepy. Discussed with the family. Family wants to have long-term placement, was seen by social insurance analyst . Based on report, the patient has agitation and restless behavior but no physical aggression, majority of the time when sundowning. Overall, the patient improving. The patient still has episodes of hallucinations which are in chronic nature and most likely the patient will continue to have visual hallucinations. PHYSICAL EXAMINATIONS: VITAL SIGNS: Stable. Temperature 97.5, pulse is 50, blood pressure 123/62, respirations 20 and saturation is 96. MEDICATIONS: Reviewed. The patient is on Xanax 0.5 mg at 04:00 p.m., also 0.5 mg as needed three times a day. The patient is on atenolol, Sinemet, dextrose, Depakote 250 mg at 04:00 p.m., Imdur, Lamictal, Seroquel 100 mg at nighttime and 100 mg at 04:00 p.m., Flomax as well as tobramycin. LABORATORY DATA: Labs reviewed. Most recent was from today. Chemistry reviewed. Urinalysis was from 01/03/2019. MENTAL STATUS EXAMINATION: The patient was deeply sleeping, snoring, not in acute distress. The patient has episodes of restless behavior, but no agitation, no aggression. Compliance with the medication, good. The patient has tendency of visual hallucinations which seemed to be chronic in nature. IMPRESSION: Delirium, dementia, rule out Lewy body disease. PLAN: We will continue current medication, current management. The patient is deemed to be improving. We distributed Seroquel as well as Depakote. Treatment plan was discussed with the patient, power of document review attorney. Risks, benefits and alternatives of the medication discussed. The patient's family looking for long-term placement. We will follow up every other day. Should you have any questions, give me a call back. Thank you very much for letting me participate in care of your patient. Bety Mccoy MD
[2019-01-15] MEDS ORDERED: Divalproex 500 mg DR(BID formulation) PO SCH (08:48)
--- NOTE | 2019-01-15 11:14 | PN ---
DATE: 01/15/2019 SUBJECTIVE: This specifications writer attempted to speak to the patient, but the patient was deeply sleeping. As per report, the patient had restless night, was trying to climb over the bed, but no physical aggression or agitation. Treatment plan was discussed with the family on multiple occasions and right now the patient is waiting for a long-term placement versus to go back home. PHYSICAL EXAMINATION: VITAL SIGNS: Stable. Temperature 98.4, pulse is 66, blood pressure 99/59, respirations 18, oxygen saturation is 97. MENTAL STATUS EXAM The patient is deeply sleeping . The patient has waxing and weaning on presentation. Majority of the time, the patient has agitation and restless behavior. At this time owning. The patient has chronic hallucinations and this specifications writer has no reasonable hopes that hallucinations will be improving. Moreover, the patient has dementia, most likely Lewy body. Insight and judgment seems to be very limited to impaired and impulses are unpredictable. Family involved. The patient's is power of medical technologist prn and the patient has daughter who is very involved. LABORATORY DATA: Labs reviewed. Most recent lab from yesterday. Urine revealed leukocyte esterase, was positive on 01/03/2019. MEDICATIONS: Reviewed. The patient is on Xanax 0.5 mg three times a day as needed, Xanax 0.5 mg at 4:00 p.m. was scheduled today. The patient is on atenolol 25 mg daily, Sinemet, dextrose, Depakote 500 mg at 4:00 p.m. which was increased today on 01/15/2019. The patient is on Imdur, Lamictal 25 mg twice a day, Seroquel 100 mg at the nighttime and 100 mg at 4 o'clock at afternoon. The patient has psychosis and the patient was seeing people and animals that is why Seroquel was given, Flomax 0.4 mg daily and tobramycin. IMPRESSION: Dementia. The patient also has Parkinson's disease, rule out Lewy body disease. PLAN: Depakote was started. Lamictal was started by medical team, Xanax 0.5 mg at 4:00 p.m. and three times a day as needed. The patient also is on Seroquel 100 mg at 4:00 p.m. before nighttime. Treatment plan was discussed with the patient's family. Most likely, the patient is to have long-term placement. This specifications writer is following the patient up on a daily basis. We will consider to switch it to every other day, but for now the patient requires medication management. Discussed with social scientist as well as case management, as well as nurse practitioner. Should you have any questions, give me a call back. Thank you very much for letting me participate in care of your patient. Bety Mccoy MD
[2019-01-15] MEDS: Tobramycin/Dexamethasone (Tobradex) Opth Sol (2.5 ml) OD SCH (11:21)
[2019-01-15 13:43] VITALS: BP 153/68; PULSE 46; RESP 16; TEMP 97.3; O2SAT 99
--- NOTE | 2019-01-16 09:02 | CP.PCM.PCO ---
Physician Communication Note - Physician Communication Note Physician Communication Note: pt was d/c, needs to be f/u by psychiatrist at [facility] within 48-72hrs.
== END 2019-01-15 21:27 | DRG 690 ==
LOC: ED 07:17 → ERH 09:53 → 5RNO 11:04
PROVIDERS: ADMIT Internal Medicine; ATTEND Internal Medicine
DX: N39.0 Urinary tract infection, site not specified (principal); F05 Delirium due to known physiological condition; F02.81 Dementia in other diseases classified elsewhere, unspecified severity, with behavioral disturbance; R44.1 Visual hallucinations; R41.82 Altered mental status, unspecified; R56.9 Unspecified convulsions; H54.61 Unqualified visual loss, right eye, normal vision left eye; W06.XXXA Fall from bed, initial encounter; R29.6 Repeated falls; N40.0 Benign prostatic hyperplasia without lower urinary tract symptoms; I73.9 Peripheral vascular disease, unspecified; I10 Essential (primary) hypertension; E86.0 Dehydration; E21.0 Primary hyperparathyroidism; E20.9 Hypoparathyroidism, unspecified; E78.5 Hyperlipidemia, unspecified; G31.83 Neurocognitive disorder with Lewy bodies; I25.10 Atherosclerotic heart disease of native coronary artery without angina pectoris; J44.9 Chronic obstructive pulmonary disease, unspecified; L40.9 Psoriasis, unspecified; M10.9 Gout, unspecified; Y92.009 Unspecified place in unspecified non-institutional (private) residence as the place of occurrence of the external cause; Z86.11 Personal history of tuberculosis; Z86.73 Personal history of transient ischemic attack (TIA), and cerebral infarction without residual deficits; Z87.891 Personal history of nicotine dependence; Z91.81 History of falling; Z88.8 Allergy status to other drugs, medicaments and biological substances